=== PATIENT | female | born 1945 | race Caucasian/White ===

== ENCOUNTER 2019-07-14 15:26 | Inpatient (IN) ==
--- NOTE | 2019-07-14 19:14 | Diag Imaging Result Doc PS360 ---
EXAM: CHEST-1 VIEW HISTORY: ams TECHNIQUE: Single view COMPARISON: None. FINDINGS: The lungs are well expanded. The heart is not enlarged. The vessels are not distended. There are no infiltrates. No effusion identified. IMPRESSION: Negative exam. Electronically signed by Dick Muñiz 07/14/2019 7:12 PM
--- NOTE | 2019-07-14 19:38 | Diag Imaging Result Doc PS360 ---
EXAM: CT HEAD W/O CONTRAST HISTORY: ams TECHNIQUE: CT head without intravenous contrast COMPARISON: None. FINDINGS: No parenchymal hemorrhage. No epidural or subdural hematoma. No subarachnoid hemorrhage. There are chronic microvascular ischemic changes. Old basal ganglia lacunar infarcts. No mass identified on this noncontrasted exam. No hydrocephalus. No sinus opacification. IMPRESSION: 1.No hemorrhage 2.Old lacunar infarcts with mild microvascular ischemic changes. This exam was performed using automated exposure control, adjustment of mA or kV according to patient size, and/or use of iterative reconstruction technique. Electronically signed by Dick Muñiz 07/14/2019 7:35 PM
[2019-07-14 19:40] LABS: ALLEN TEST YES; BLOOD TYPE ARTERIAL; HCO3-(ACT) 24.9 mmoll (20.0-26.0); O2(CT) 16.7 mL/dL (15.0-23.0); O2HB 94.3 % (95.0-99.0); PCO2(98.6) 40 mmHg (35-45); PO2(98.6) 73 mmHg (60-100); SAMPLE BLOOD; SAO2 94.3 % (95.0-100.0); THB 12.6 g/dL (11.5-17.4)
[2019-07-14 19:41] LABS: MODALITY ROOM AIR
[2019-07-14 20:18] LABS: HEMATOCRIT 39.6 % (37.0-47.0); HEMOGLOBIN 12.5 g/dL (12.0-16.0); MCH 29.9 PG (27-31); MCHC 31.6 g/dL (33-37); MCV 94.7 FL (81-99); MPV 10.3 FL (7.4-10.4); RBC 4.18 XMIL (4.2-5.4); RDW 13.2 % (11.5-14.5); WBC 11.49 X1000 (4.8-10.8)
[2019-07-14 20:42] LABS: ALB/GLOB RATIO 1.3; CALCIUM 9.2 mg/dL (8.8-10.2); POTASSIUM 3.4 mmol/L (3.5-5.1); TOTAL BILIRUBIN 0.16 mg/dL (0.20-1.00)
[2019-07-14 20:53] LABS: T4 8.83 ug/dL (4.60-12.00); TSH 0.5 uIUmL (0.27-4.20)
[2019-07-15 04:05] LABS: URINE SOURCE CLEAN CATCH
[2019-07-15 04:08] LABS: BILIRUBIN URINE NEGATIVE (NEGATIVE); BLOOD URINE TRACE (NEGATIVE); COLOR YELLOW; GLUCOSE URINE NEGATIVE (NEGATIVE); KETONE URINE NEGATIVE (NEGATIVE); LEUKOCYTES URINE NEGATIVE (NEGATIVE); NITRITE URINE NEGATIVE (NEGATIVE); PROTEIN URINE NEGATIVE (NEGATIVE); SP GRAVITY URINE 1.016; TURBIDITY URINE CLEAR (CLEAR); UR EPITHELIAL CELLS <10 /HPF (<10); URINE BACTERIA NEGATIVE /HPF; URINE RBC <10 /HPF (<10); URINE WBC <10 /HPF (<10); UROBILINOGEN URINE NORMAL (NORMAL)
[2019-07-15] MEDS: NORCO-7.5 PO PRN ×2 (04:11→16:55)
[2019-07-15] MEDS: LOVENOX SUBQ SCH (08:45)
[2019-07-15] MEDS: PROTONIX PO SCH (08:45)
[2019-07-15] MEDS: M.V.I.-12 10 ML, FOLIC ACID 1 MG, MAGNESIUM SULFATE 1 GM, THIAMINE 100 MG in NS 1,000 ML IV SCH (08:45)
[2019-07-15] MEDS ORDERED: XANAX PO PRN (08:53)
[2019-07-15] MEDS: DYAZIDE PO SCH (09:12)
[2019-07-15] MEDS: KLOR-CON PO SCH (09:12)
[2019-07-15] MEDS: NAPROSYN PO SCH ×2 (09:12→20:49)
[2019-07-15] MEDS: TOPAMAX PO SCH (09:13)
[2019-07-15] MEDS: XANAX PO PRN ×2 (09:18→20:53)
[2019-07-15] MEDS: SYNTHROID PO SCH (09:18)
--- NOTE | 2019-07-15 10:12 | PROGRESS NOTE ---
DATE: 07/15/2019 SUMMARY: Ms Meyer is not feeling well. She is still somewhat confused. Her lungs are clear. Heart sounds are normal. She has mild leukocytosis, chronic diarrhea. Urinalysis is negative. She is somewhat hypotensive. I have ordered an EEG on her today. Overall condition is otherwise unchanged. We are going to review her medications today and restart most of them. -2 cc: Emory King MD
--- NOTE | 2019-07-15 11:28 | HISTORY AND PHYSICAL ---
HISTORY OF PRESENT ILLNESS: Ms. Meyer is a 73-year-old white female who was admitted with acute mental status change. Ms. Meyer has been very depressed lately, according to her stepdaughter who lives with her. Mentioned that she has severe mental confusion at times. She gets some auditory and visual hallucinations at time. She has been staying very nervous lately. She has a known case of hypertension. PAST SURGICAL HISTORY: Left-sided salpingo-oophorectomy. She has a history of cholecystectomy, bilateral cataract surgery. ALLERGIES: She is she is allergic to iodinated contrast media, penicillin, and diazepam. SOCIAL HISTORY: She has never smoked, however, she has secondhand smoking. No alcohol intake. REVIEW OF SYSTEMS: Other than intermittent mental confusion, she has severe diarrhea intermittently resulting in dehydration. She also has recurrent respiratory infections. PHYSICAL EXAMINATION: VITAL SIGNS: Temperature normal, pulse 66 per minute, respiratory rate 19 per minute, blood pressure 103/48. HEENT: Head normocephalic. PERRLA. Fundus examination normal. Neck supple. Normal ENT examination, unremarkable. There is no evidence of lymphadenopathy, thyroid enlargement, pedal edema, calf tenderness, anemia, cyanosis or clubbing. Pedal pulses well felt. BREAST EXAM: Not done. CHEST: Normal inspection. LUNGS: Clear on auscultation. PMI in the normal position. HEART: Sounds normal. No murmur, gallop or rub noted. ABDOMEN: Nondistended, hernial orifices normal. No guarding, rigidity, free fluid, masses, or organomegaly. Bowel sounds normal. RECTAL: Deferred. CENTRAL NERVOUS SYSTEM: Higher functions, patient gets intermittently confused and has a history of mild hallucination. Cranial nerves normal. Motor and sensory system examination unremarkable. Deep tendon reflexes normal. Plantars downgoing. Skull and spine examination reveals painful movements of the lumbosacral spine. She has chronic back pain. SLR positive. No cerebellar signs or signs of meningeal irritation LOCOMOTOR SYSTEM AND SKIN: Unremarkable except for mild dehydration. CLINICAL IMPRESSION: Dehydration, mild hypotension, acute mental status change, chronic recurrent diarrhea, recurrent respiratory infections, anxiety, depression. PLAN: We will start her on IV fluids. Get the CT scan. Neurologic checks on her. We will order EEG if it is needed. cc: Emory King MD
[2019-07-15] MEDS: PAMELOR PO SCH ×2 (13:41→20:49)
--- NOTE | 2019-07-15 15:09 | GASTROENTEROLOGY CONSULTATION ---
DATE: 07/15/2019 REASON FOR CONSULTATION: Chronic diarrhea. HISTORY OF PRESENT ILLNESS: Ms. Meyer is a 73-year-old, female who came yesterday evening to the hospital. She came directly from Dr. King's office Patient thought that she was having UTI but urinalysis was negative. The patient has been complaining of diarrhea and this has been going on for sometime after onwards. The patient mentioned that she would have a few days of diarrhea and it would stop and the same episodes would repeat. Yesterday she had only 1 bowel movement and it was sticky in consistency. She has denied noticing any blood in her stools. The patient had associated symptoms of abdominal cramping and nausea. She has denied any fever, chills, shortness of breath but does mention that she has headaches all the time. The patient also mentioned that she has vertigo and that sometimes it causes her to feel dizzy, drowsy, and has had a few episodes of fall in the past. The patient also has anxiety and depression. She says some of the things make her anxious and her anxiety also can cause her to have dizzy spells. PAST MEDICAL HISTORY: Hypertension, left ear problems, vertigo, anxiety, depression, and generalized weakness. PAST SURGERIES: Cataract surgery, gallbladder surgery, cyst on the left ovary and fallopian tube removed, and D & C. ALLERGIES: The patient is allergic to penicillin, IV dye contrast, Valium. SOCIAL HISTORY: She is . She has 1 daughter. She occasionally consumes wine but has denied any smoking or illicit drug use. FAMILY HISTORY: Positive for heart problems. HOME MEDICATIONS: Levothyroxine 88 mcg daily, nortriptyline 10 mg 3 times a day, esomeprazole magnesium 40 mg daily, triamterene/hydrochlorothiazide 37.5/25 mg 1 tablet daily, naproxen 500 mg twice a day, topiramate 100 mg daily, potassium chloride 10 mEq p.o. daily, meclizine 25 mg p.o. at bedtime, alprazolam 1 mg b.i.d. as needed, Zanaflex 4 mg at bedtime. REVIEW OF SYSTEMS: As per HPI. Otherwise, 12 point review of systems is negative. PHYSICAL EXAMINATION: Vital Signs: Temperature 98.2, pulse 71, respirations 17, blood pressure 117/46, oxygen saturation 95% on room air. The patient's weight is 141 pounds. BMI is 24.6 kg/m2. General: She is alert, oriented x3. Answering questions appropriately. Hard of hearing and in no acute distress. HEENT: Pale conjunctivae. No icterus. PERRL. Neck: Supple. Lungs: Clear to auscultation. Cardiovascular: Regular rate and rhythm. Abdomen: Soft. Tender. Generalized tenderness. Active bowel sounds heard in all 4 quadrants. Extremities: No clubbing, no cyanosis, no edema. Pedal pulses 2+ present bilaterally. Neurological: Alert and oriented x3. Nonfocal. Cranial nerves 2-12 grossly intact. LABS: WBCs are 11.49, RBCs 4.18, hemoglobin 12.5, hematocrit is 39.6, platelet count is 245,000. Sodium 139, potassium 3.4, chloride 101, carbon dioxide 28, anion gap 10, BUN 21, creatinine is 1.0, glucose 102, calcium 9.2. Total bilirubin 0.16, AST 14, ALT 8, alkaline phosphatase is 59, albumin 4.0. TSH is 0.50 and thyroxine 8.83. Urinalysis yesterday showed a trace of blood. Chest x-ray yesterday showed negative exam. Head CT has shown no hemorrhage but old lacunar infract with mild microvascular ischemic changes. IMPRESSION AND PLAN: 1. Recurrent diarrhea. 2. Abdominal pain. 3. Dehydration. 4. Generalized weakness. 5. Anxiety and depression. 6. History of vertigo. 7. Hypokalemia. PLAN: Ms. Meyer is a 73-year-old, female with a history of vertigo, hypertension, anxiety, depression, and generalized weakness. GI has been consulted for her diarrhea. The patient is currently receiving MVI at 149 mL per hour. She is on GI prophylaxis, Protonix 40 mg p.o. daily. The patient's potassium today is 3.4. She is currently receiving potassium 10 mEq tablet daily per PCP. We have ordered stool studies and urine culture. Depending on the stool studies, we will decide further plan of care. We will continue to monitor the patient and follow the plan of care per PCP. This plan was discussed with Dr. Harper. Thank you for your consult. Please call us for any further questions or concerns. Dictated by TYRELL Reese for Miguel Harper MD cc: Emory King MD Physician Attestation I have seen and examined the patient. I have discussed and reviewed the note by Tiesha SANTILLAN and agree with findings and plan as documented. She reports having intermittent diarrhea worse with eating over the last 1-2 months with cramping abdominal pain. Her diarrhea is intermittent. No rectal bleeding, melena. She also has diffuse weakness and fatigue. Recommend stool studies to rule out infectious diarrhea. She had report EGD and colonoscopy. She may need bidirectional endoscopy inpatient vs outpatient. Her weakness does not appear to be related to diarrhea as her labs are not consistent with diffuse diarrhea and/or dehydration. She has mild leukocytosis and hypokalemia. Consider rheumatologic/neurologic evaluation of weakness. MTDD
[2019-07-15] MEDS: ZANAFLEX PO SCH (20:49)
[2019-07-15] MEDS: ANTIVERT PO SCH (20:49)
[2019-07-16] MEDS: SYNTHROID PO SCH (06:30)
[2019-07-16] MEDS ORDERED: FIORICET PO PRN (09:01)
[2019-07-16] MEDS: PAMELOR PO SCH ×3 (09:45→21:37)
[2019-07-16] MEDS: KLOR-CON PO SCH (09:55)
[2019-07-16] MEDS: TOPAMAX PO SCH (10:03)
[2019-07-16] MEDS: NAPROSYN PO SCH ×2 (10:04→21:36)
[2019-07-16] MEDS: PROTONIX PO SCH (10:04)
[2019-07-16] MEDS: LOVENOX SUBQ SCH (10:04)
[2019-07-16] MEDS: DYAZIDE PO SCH (10:04)
[2019-07-16] MEDS: M.V.I.-12 10 ML, FOLIC ACID 1 MG, MAGNESIUM SULFATE 1 GM, THIAMINE 100 MG in NS 1,000 ML IV SCH (10:08)
--- NOTE | 2019-07-16 10:16 | PROGRESS NOTE ---
DATE: 07/16/2019 Ms. Meyer is feeling slightly better. She has nervous tension headache. We will probably start her on Fioricet p.r.n. I think this could be nervous tension or because of the cervical spine arthritis. Her stool studies have been negative. She had a GI consultation with Dr. Harper. Her CT scan of the brain is negative. EEG has been done. We do not have the results. cc: Emory King MD MTDD
--- NOTE | 2019-07-16 11:35 | GASTROENTEROLOGY PROGRESS NOTE ---
DATE: 07/16/2019 PATIENT PROFILE: A 73-year-old female. SUBJECTIVE: Ms. Meyer is a 73-year-old female sitting in bed. Her daughter was at the bedside. The patient was anxious to know whether she could go home today or whether she had any procedures being done today. She had 1 bowel movement yesterday. OBJECTIVE: Vital Signs: Temperature 98.0 degrees, pulse 70, respirations 17, blood pressure 103/44, oxygen saturation 95% on room air. Patient's weight is 141 pounds. BMI is 24.6 kg/m2. General: She is alert, oriented x3, and in no acute distress. HEENT: Pale conjunctivae, no icterus. PERRL. Neck: Supple. Lungs: Clear to auscultation. Cardiovascular: Regular rate and rhythm. Abdomen: Soft, nontender, nondistended. Active bowel sounds heard in all 4 quadrants. Extremities: No clubbing, no cyanosis, no edema. Pedal pulses 2+ present bilaterally. Neurologic: Alert and oriented x3. LABS: Labs are from 07/14. WBCs 11.49, RBC 4.18, hemoglobin 12.8, hematocrit 39.6, platelet count is 245. Sodium 139, potassium 3.4, chloride 101, carbon dioxide 28, anion gap 10. BUN 21, creatinine 1.0, glucose 102, calcium 9.2, total bilirubin 0.16. AST 14, ALT 8, alkaline phos 59. TSH 0.50 and T4 is 8.83. MICROBIOLOGY: The patient's C-diff toxin and antigen both were negative. Her occult blood was negative and stool for WBCs were rare. Awaiting the results of her stool culture and urine culture. IMPRESSION AND PLAN: Diarrhea Abdominal Pain Generalized weakness with vertigo Hypokalemia PLAN: Ms. Meyer is a 73-year-old female with a history of vertigo, hypertension, anxiety, depression, and generalized weakness. GI is following her for her diarrhea. The patient's stool studies for C difficile toxin, antigen, occult blood and stool for WBCs were all negative. Awaiting the results of the stool culture and urine culture. The patient will need an EGD and a colonoscopy due to her episodes of diarrhea and complaining of it getting worse after she eats. Patient currently c/o that she is too weak to get any procedures done or go through the colon prep. We have advised patient to follow us up in 2 to 4 weeks as an outpatient and once she is ready we will schedule her for a colonoscopy. The patient is currently receiving the MVI bag at 149.9 mL/hour. She is on GI prophylaxis, Protonix 40 mg p.o. daily. Patient had only one bowel movement yesterday. We will continue to monitor the patient and follow the plan of care per PCP. This plan was discussed with Dr. Kelly. Please call us for any further questions or concerns. Dictated by TYRELL Reese for Lenny Kelly MD cc: MD Emory Carranza MD I have seen and examined the patient myself and I agree with the above plan of care. Patient may benefit from Neurology/rheumatology consultation. Please call us with any further questions. MTDD
[2019-07-16] MEDS: NORCO-7.5 PO PRN (15:49)
[2019-07-16] MEDS: XANAX PO PRN (17:20)
[2019-07-16 20:00] LABS: CALCIUM 9.4 mg/dL (8.8-10.2); CREATININE 1.1 mg/dL (0.5-0.9); POTASSIUM 4.1 mmol/L (3.5-5.1)
--- NOTE | 2019-07-16 21:09 | EKG Report ---
Test Performed on : 07/16/2019 6:33:00 PM Test Reason : tele change Blood Pressure : / mmHG Vent. Rate : 080 BPM Atrial Rate : 080 BPM P-R Int : 220 ms QRS Dur : 072 ms QT Int : 374 ms P-R-T Axes : 082 046 100 degrees QTc Int : 431 ms Sinus rhythm. with 1st degree AV block. with occasional premature ventricular complexes. Low voltage QRS Nonspecific T wave abnormality Abnormal ECG No previous ECGs available Unconfirmed Result
[2019-07-16] MEDS: ZANAFLEX PO SCH (21:37)
[2019-07-16] MEDS: ANTIVERT PO SCH (21:37)
[2019-07-17] MEDS: SYNTHROID PO SCH (06:16)
[2019-07-17 08:08] VITALS: BP 130/50
[2019-07-17] MEDS: NAPROSYN PO SCH (08:31)
[2019-07-17] MEDS: LOVENOX SUBQ SCH (08:31)
[2019-07-17] MEDS: PROTONIX PO SCH (08:31)
[2019-07-17] MEDS: DYAZIDE PO SCH (08:31)
[2019-07-17] MEDS: TOPAMAX PO SCH (08:31)
[2019-07-17] MEDS: KLOR-CON PO SCH (08:31)
[2019-07-17] MEDS: PAMELOR PO SCH (08:31)
[2019-07-17] MEDS: M.V.I.-12 10 ML, FOLIC ACID 1 MG, MAGNESIUM SULFATE 1 GM, THIAMINE 100 MG in NS 1,000 ML IV SCH (08:32)
--- NOTE | 2019-07-17 12:09 | GASTROENTEROLOGY PROGRESS NOTE ---
DATE: 07/17/2019 SUBJECTIVE: Ms. Meyer is a 73-year-old female sitting in bed. Daughter is at the bedside. The patient mentioned that she was very anxious yesterday and had some palpitations. EKG yesterday evening showed that she had an episode of PVC. She has denied any bowel movements today. OBJECTIVE: Vital Signs: Temperature 98.4 degrees, pulse 77, respirations 16, blood pressure 130/50, oxygen saturation 98% on room air. The patient's weight is 141 pounds. BMI is 24.6 kg/m2. General: She is alert, oriented x3. No acute distress. HEENT: Pale conjunctivae. No icterus. Neck: Supple. Lungs: Clear to auscultation. Cardiovascular: Regular rate and rhythm Abdomen: Soft, nontender, nondistended. Active bowel sounds present. Moving all 4 quadrants. Extremities: No clubbing, no cyanosis, no edema. Pedal pulses 2+ present bilaterally. Neurologic: The patient is alert, oriented x3. LABORATORY DATA: The patient has got no new hematology. Her chemistries are from 07/16/2019. Sodium is 141, potassium is 4.1, chloride is 103. Carbon dioxide 28, anion gap 10, BUN 22, creatinine 1.1, glucose 100, calcium 9.4. The patient's stool studies have been negative. Her urine culture has shown no growth and stool culture was negative. IMPRESSION AND PLAN: Recurrent diarrhea Abdominal pain Generalized weakness Anxiety and depression History of vertigo PLAN: Ms. Meyer is a 73-year-old female with a history of vertigo, hypertension, anxiety, depression, generalized weakness. GI is following her for her diarrhea. Her diarrhea has been resolved. Her stool studies have all been negative. The patient will need an EGD and a colonoscopy and we will do that outpatient once the patient is ready, she has mentioned that she is weak now and does not want to do it. We will follow her up as an outpatient. The patient is currently receiving MVI back at 149 mL/h. She is on Protonix 40 mg p.o. daily. We will continue to monitor the patient and follow the plan of care per PCP. This plan was discussed with Dr. Harper. Please call us for any further questions or concerns. Dictated by TYRELL Reese for Miguel Harper MD cc: Emory King MD [facility]
--- NOTE | 2019-07-17 14:14 | PROGRESS NOTE ---
DATE: 07/17/2019 SUBJECTIVE: Ms. Meyer had a few PVCs last night. Her lungs are clear. Heart sounds are normal. She is doing better. We will talk about Neurology consult later on, and she will see the GI physician at a later date. We will discharge. -4 cc: Emory King MD
--- NOTE | 2019-07-17 19:05 | EEG REPORT ---
DATE: 07/15/2019 COMMENT: This is a digitally recorded EEG on a 73-year-old patient with reported altered mental state. FINDINGS: Low-amplitude polymorphic and rhythmic theta are present across the hemispheres symmetrically. Posterior dominant rhythm is present, reaching 10 hertz at medium amplitude bilaterally. Photic stimulation produced some symmetric entrainment. Hyperventilation was not done. Drowsing occurred with appearance of more generalized slowing. Stage 2 sleep was not recorded. No definite epileptiform discharge was identified. Frontal muscle contraction artifact was prominent through portions of the record, but did not hinder interpretation. INTERPRETATION: Normal EEG. CORRELATION: There is nothing on this record to suggest the presence of an encephalopathy or other explanation for her reported mental status change. The absence of epileptiform discharges on a single EEG does not exclude a clinical diagnosis of seizures. cc: MD Emory Kuo III, MD
--- NOTE | 2019-07-17 20:19 | DISCHARGE SUMMARY ---
ADMISSION DATE: 07/14/2019 DISCHARGE DATE: 07/17/2019 DIAGNOSIS OF ADMISSION: Ms. Meyer was admitted with acute change in mental status. DIAGNOSTIC DATA DURING ADMISSION: CT scan of the head revealed some lacunar infarcts and microvascular changes. No hemorrhages noted. Chest x-ray was unremarkable. EKG revealed frequent PVCs, regular sinus rhythm. First-degree AV block present. Low voltage QRS. LABORATORY DATA: Revealed a white count of 11.49, hemoglobin 12.5. Arterial blood gases were normal. Electrolytes were normal. Potassium was 3.4 initially and it is up to 4.1. Glucose was normal. Liver profile was completely normal. TSH and thyroxin levels were normal. Urinalysis was unremarkable. COURSE IN THE HOSPITAL: She had foamy diarrhea also. Neuro checks were performed. A GI consult was obtained. All the stool studies were negative including Clostridium difficile and occult blood. She was seen by Dr. Harper. We will continue to watch her closely. She had an EEG done, the results are not back yet. IMPRESSION: 1. Change in mental status, the cause is not known. 2. Mild hypokalemia, chronic diarrhea, etiology undetermined. 3. Mild hypertension. 4. Hypothyroidism. 5. 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 FOLLOWUP: I will see her in the office in about 1 week. cc: Emory King MD MTDD
== END 2019-07-17 13:14 | disposition home or self-care (01) | DRG 948 ==
LOC: DIRADM 15:26 → 4N 18:06
PROVIDERS: ADMIT Internal Medicine; ATTEND Internal Medicine